=== PATIENT | male | born 1960 | race Caucasian/White ===

== ENCOUNTER 2023-11-30 05:47 | Observation (INO) ==
[2023-11-30] MEDS ORDERED: Buffered Lidocaine 1% SYRIN 1 ml INTRADERM ONE (06:00)
[2023-11-30 06:47] LABS: Rapid COVID-19 Molecular Undetected (Undetected)
[2023-11-30] MEDS ORDERED: Midazolam 2 mg/2 ml VIAL 1 mg/ml 2 ml VIAL (2 mg) ONE ×2 (06:47→07:53)
[2023-11-30] MEDS ORDERED: fentaNYL 100 mcg/2 ml 50 MCG/ML VIAL ONE (06:47)
[2023-11-30] MEDS ORDERED: Lidocaine 2% PF 5 ML VIAL ONE (06:48)
[2023-11-30] MEDS ORDERED: Glycopyrrolate IV 0.2 MG/ML 1 ML VIAL ONE (06:48)
[2023-11-30] MEDS ORDERED: Phenylephrine IV 10 MG/ML 1 ml VIAL ONE (06:48)
[2023-11-30] MEDS ORDERED: ceFAZolin 2 GM PREMIX 2 GM/50 ML BAG ONE (06:49)
[2023-11-30] MEDS ORDERED: Famotidine IV 10 MG/ML 2 ml VIAL (20 mg) ONE (06:53)
[2023-11-30] MEDS: Famotidine IV 10 MG/ML 2 ml VIAL (20 mg) IV ONE (06:55)
[2023-11-30] MEDS: Lactated Ringers 1000 ml BAG 1,000 ML IV SCH ×2 (06:55→12:13)
[2023-11-30] MEDS ORDERED: ROPIVACAINE 5 MG/ML 30 ML BTL (0.5%) ONE ×2 (07:00→07:21)
[2023-11-30] MEDS ORDERED: Tranexamic Acid 1 GM/100ML BAG 2,000 MG/200 ML BAG IV ONE (07:30)
[2023-11-30] MEDS ORDERED: Acetaminophen IV 1 GM/100ML 1,000 MG/100 ML BAG IV ONE (08:11)
[2023-11-30] MEDS ORDERED: Naloxone 0.4 mg VIAL 0.4 mg/ml 1 ml VIAL IV PRN (08:13)
[2023-11-30] MEDS ORDERED: HYDROmorphone 1 MG/1 ML SYRINGE IV PRN (08:13)
[2023-11-30] MEDS ORDERED: fentaNYL 100 mcg/2 ml 50 MCG/ML VIAL IV PRN (08:13)
[2023-11-30] MEDS ORDERED: Ondansetron 4 mg VIAL 2 MG/ML 2 ml VIAL IV PRN ×2 (08:13→10:26)
[2023-11-30] MEDS ORDERED: Sevoflurane BOTTLE ONE ×2 (09:01→09:49)
[2023-11-30] MEDS ORDERED: Propofol 10 MG/ML 20 ML BTL ONE (09:20)
[2023-11-30] MEDS ORDERED: Lactulose 30 ml UDC PO PRN (10:26)
[2023-11-30] MEDS ORDERED: Ondansetron ODT 4 mg TAB 4 MG TAB PO PRN (10:26)
[2023-11-30] MEDS ORDERED: Morphine 2 MG/ML SYRINGE IV PRN (10:26)
[2023-11-30] MEDS ORDERED: Magnesium Hydroxide LIQ 30 ML UDC PO PRN (10:26)
[2023-11-30 14:14] VITALS: BP 135/84
[2023-11-30] MEDS: ceFAZolin 1 GM ADVAN 1 GM in NS 0.9% 50 ML 50 ML IVPB SCH (15:02)
[2023-11-30] MEDS ORDERED: Magnesium Hydroxide LIQ 30 ML UDC PO SCH (21:00)
[2023-12-01] MEDS ORDERED: Vitamin THERAPEUTIC TAB PO SCH (09:00)
== END 2023-11-30 16:10 | disposition home or self-care (01) ==
LOC: INTOOBSV 05:47 → AA 05:47 → SSU 10:26
PROVIDERS: ADMIT Orthopaedic Surgery Adult Reconstructive Orthopaedic Surgery; ATTEND Orthopaedic Surgery Adult Reconstructive Orthopaedic Surgery